=== PATIENT | male | born 1960 | race American Indian/Alaskan Native ===

== ENCOUNTER 2017-07-22 01:54 | Emergency (ER) | payer MEDICARE, OTHER ==
[2017-07-22] MEDS ORDERED: TYLENOL PO STA (02:12)
[2017-07-22] MEDS ORDERED: NACL 0.9% 500 ML 1,000 ML IV ONE (02:12)
[2017-07-22] MEDS ORDERED: NACL 0.9% 1000 ML 1,000 ML IV ONE ×2 (02:29→02:57)
[2017-07-22 02:52] LABS: Hemoglobin 10.9 gm/dl (11.8-15.2); Mean Corpuscular HGB Conc 34 % (32-34); Mean Corpuscular Hemoglobin 31 pg (28-32); Mean Corpuscular Volume 91 fl (84-94); Platelet Count 161 K/mm3 (140-440); Red Blood Count 3.53 M/mm3 (3.65-5.03); Red Cell Distribution Width 14.3 % (13.2-15.2)
[2017-07-22] MEDS ORDERED: VANCOMYCIN/NS 1 GM/250 ML 1 GM/250 ML BAG IV ONE (02:59)
[2017-07-22 03:01] LABS: INR 1.12 (0.87-1.13)
[2017-07-22 03:03] LABS: Albumin 3.3 g/dL (3.9-5); Calcium 8.3 mg/dL (8.4-10.2); Magnesium 1.5 mg/dL (1.7-2.3)
[2017-07-22 03:05] LABS: Amphetamine Screen,Urine PRESUMPTIVE NEGATIVE; Benzodiazepines Screen,Urine PRESUMPTIVE NEGATIVE; Cannabinoid Screen,Urine PRESUMPTIVE NEGATIVE; Cocaine Screen,Urine PRESUMPTIVE NEGATIVE; Methadone Screen,Urine PRESUMPTIVE NEGATIVE; Opiate Screen,Urine PRESUMPTIVE NEGATIVE
[2017-07-22 03:13] LABS: Bacteria,Urine 1+ /HPF (Negative); Bilirubin,Urine NEG (Negative); Blood,Urine LG (Negative); Color,Urine Yellow (Yellow); Mucus,Urine FEW /HPF; Nitrite,Urine NEG (Negative); Urobilinogen,Urine < 2.0 mg/dL (<2.0)
[2017-07-22 03:15] LABS: RBC,Urine > 182.0 /HPF (0.0-6.0); WBC,Urine > 182.0 /HPF (0.0-6.0)
--- NOTE | 2017-07-22 03:22 | XRay Report ---
FINAL REPORT PROCEDURE: XR CHEST 1V AP TECHNIQUE: Chest radiograph anteroposterior view. CPT 05517 HISTORY: CXR/possible Sepsis COMPARISON: No prior studies are available for comparison. FINDINGS: Heart: Normal. Mediastinum/Vessels: There is mild pulmonary vascular congestion.. Lungs/Pleural space: Lungs are clear. There are no infiltrates, effusions or pneumothoraces.. Bony thorax: No acute osseous abnormality. Life support devices: None. IMPRESSION: No acute cardiopulmonary abnormality.
[2017-07-22 03:25] LABS: Band Neutrophils # (Manual) 0.6 K/mm3; Basophils % (Manual) 0 % (0.0-1.8); Eosinophils % (Manual) 0 % (0.0-4.3); Monocytes % (Manual) 0 % (0.0-7.3); Myelocytes # (Manual) 0.1 K/mm3; Total Cells Counted 100
[2017-07-22 03:26] LABS: Platelet Estimate Consistent w Auto
[2017-07-22] MEDS ORDERED: VANCOMYCIN 2,000 MG in NACL 0.9% 500 ML 500 ML IV ONE (03:30)
[2017-07-22 03:43] LABS: Creatine Kinase MB < 1.0 ng/mL (0.0-4.0)
--- NOTE | 2017-07-22 03:52 | XRay Report ---
FINAL REPORT PROCEDURE: XR KNEE 1-2V LT TECHNIQUE: LEFT knee radiographs, AP, lateral and sunrise views. CPT 85340 HISTORY: septic joint LEFT KNEE POST OP 2 DAYS COMPARISON: No prior studies are available for comparison. FINDINGS: The knee replacement hardware is intact. There is no acute bony abnormality. There is generalized soft tissue swelling with numerous pockets of subcutaneous air which could be due to recent surgery although infection is not excluded. There is no discrete mass. There is no joint effusion.. IMPRESSION: The knee replacement hardware is intact. There is no acute bony abnormality. There is generalized soft tissue swelling with numerous pockets of subcutaneous air which could be due to recent surgery although infection is not excluded.
--- NOTE | 2017-07-22 04:28 | Emergency Department Report ---
<SINAI PARSONS T - Last Filed: 07/22/17 06:41> ED Altered Mental Status HPI - General Chief Complaint: Altered Mental Status Stated Complaint: UNSTABLE Time Seen by Provider: 07/22/17 02:56 Source: patient, EMS Mode of arrival: Stretcher Limitations: No Limitations - History of Present Illness Initial Comments: 57 yo male who comes in today due to altered mental status. He had a left total knee joint replacement on 07/19/17. states that the patient wanted to turn up the heat in the house as he felt chills. She also stated that he was saying things that didn't make any sense. Patient temperature of 103.2 in the ED. Mental status baseline. On exam, the patient's left knee is warm and tender to touch. MD Complaint: altered mental status -: This evening Severity: mild Consistency of Symptoms: unknown (resolved currently ) Context: other (left total knee replacement ) Associated Symptoms: fever/chills, foul smelling urine - Related Data Home Medications Medication Instructions Recorded Confirmed Last Taken Albiglutide [Tanzeum] 50 mg SQ QWEEK 07/22/17 07/22/17 07/16/17 metFORMIN [Glucophage] 500 mg PO QDAY 07/22/17 07/22/17 07/20/17 Allergies Allergy/AdvReac Type Severity Reaction Status Date / Time No Known Allergies Allergy Unverified 07/22/17 02:02 ED Review of Systems ROS: Stated complaint: UNSTABLE Other details as noted in HPI Constitutional: chills, fever, malaise, weakness Eyes: denies: eye pain, eye discharge, vision change ENT: denies: ear pain, throat pain Respiratory: denies: cough, shortness of breath, wheezing Cardiovascular: denies: chest pain, palpitations Endocrine: no symptoms reported Gastrointestinal: denies: abdominal pain, nausea, diarrhea Genitourinary: denies: urgency, dysuria Musculoskeletal: arthralgia, myalgia Skin: other (warmth/erythema ) Neurological: denies: headache, weakness, paresthesias Psychiatric: denies: anxiety, depression Hematological/Lymphatic: denies: easy bleeding, easy bruising ED Past Medical Hx - Past Medical History Previous Medical History?: Yes Hx Diabetes: Yes Additional medical history: high cholesterol - Surgical History Past Surgical History?: Yes Additional Surgical History: total knee replacement - Social History Smoking Status: Never Smoker Substance Use Type: Prescribed - Medications Home Medications: Home Medications Medication Instructions Recorded Confirmed Last Taken Type Albiglutide [Tanzeum] 50 mg SQ QWEEK 07/22/17 07/22/17 07/16/17 History metFORMIN [Glucophage] 500 mg PO QDAY 07/22/17 07/22/17 07/20/17 History ED Physical Exam - General Limitations: No Limitations General appearance: alert, in no apparent distress - Head Head exam: Present: atraumatic, normocephalic - Eye Eye exam: Present: normal appearance - ENT ENT exam: Present: mucous membranes moist - Neck Neck exam: Present: normal inspection - Respiratory Respiratory exam: Present: normal lung sounds bilaterally. Absent: respiratory distress - Cardiovascular Cardiovascular Exam: Present: tachycardia - GI/Abdominal GI/Abdominal exam: Present: soft, normal bowel sounds - Extremities Exam Extremities exam: Present: tenderness (left total knee replacement with warmth/ erythema) - Back Exam Back exam: Present: normal inspection - Neurological Exam Neurological exam: Present: alert, oriented X3 - Psychiatric Psychiatric exam: Present: normal affect, normal mood - Skin Skin exam: Present: other (warmth/erythema-left knee ) - Level of Consciousness 1a. Level of Consciousness: alert - LOC Questions 1b. LOC Questions: answers correctly ED Course Vital Signs 07/22/17 07/22/17 07/22/17 01:54 02:00 02:02 Temperature 103.2 F H Pulse Rate 118 H 115 H 112 H Respiratory 33 H 37 H 22 Rate Blood Pressure 102/45 111/48 Blood Pressure [Left] O2 Sat by Pulse 100 100 Oximetry 07/22/17 07/22/17 07/22/17 02:11 02:16 02:17 Temperature 103.2 F H Pulse Rate 115 H Respiratory 43 H 24 Rate Blood Pressure 100/40 Blood Pressure [Left] O2 Sat by Pulse 100 100 Oximetry 07/22/17 07/22/17 07/22/17 02:21 02:30 02:46 Temperature Pulse Rate 112 H 108 H 119 H Respiratory 44 H 50 H Rate Blood Pressure 100/54 108/44 Blood Pressure [Left] O2 Sat by Pulse 100 99 Oximetry 07/22/17 07/22/17 07/22/17 03:00 03:16 03:30 Temperature Pulse Rate 110 H 117 H 110 H Respiratory 51 H 46 H 48 H Rate Blood Pressure 102/46 107/52 110/54 Blood Pressure [Left] O2 Sat by Pulse 100 100 100 Oximetry 07/22/17 07/22/17 07/22/17 03:46 04:00 04:11 Temperature 100.3 F H Pulse Rate 114 H 113 H Respiratory 46 H 38 H Rate Blood Pressure 104/51 98/51 Blood Pressure [Left] O2 Sat by Pulse 100 100 Oximetry 07/22/17 07/22/17 07/22/17 04:16 04:30 04:46 Temperature Pulse Rate 114 H 113 H 112 H Respiratory 49 H 50 H 50 H Rate Blood Pressure 93/49 94/47 95/49 Blood Pressure [Left] O2 Sat by Pulse 99 95 94 Oximetry 07/22/17 07/22/17 07/22/17 05:00 05:15 05:20 Temperature Pulse Rate 110 H 113 H Respiratory 55 H 56 H 24 Rate Blood Pressure 98/47 93/45 Blood Pressure 106/58 [Left] O2 Sat by Pulse 98 97 98 Oximetry 07/22/17 07/22/17 07/22/17 05:31 05:45 06:33 Temperature Pulse Rate 115 H 116 H Respiratory 57 H 48 H Rate Blood Pressure 108/54 114/60 93/39 Blood Pressure [Left] O2 Sat by Pulse 99 97 98 Oximetry 07/22/17 07/22/17 07/22/17 06:45 06:46 07:01 Temperature 103.2 F H Pulse Rate 111 H 117 H Respiratory 58 H 29 H Rate Blood Pressure 93/39 97/47 Blood Pressure [Left] O2 Sat by Pulse 98 96 Oximetry 07/22/17 07/22/17 07/22/17 07:15 07:31 07:45 Temperature Pulse Rate 112 H 111 H 106 H Respiratory 34 H 52 H 23 Rate Blood Pressure 111/54 82/29 82/29 Blood Pressure [Left] O2 Sat by Pulse 97 94 96 Oximetry 07/22/17 07/22/17 07/22/17 08:00 08:05 08:11 Temperature Pulse Rate 110 H 110 H 109 H Respiratory 55 H 45 H 22 Rate Blood Pressure 69/25 69/25 69/25 Blood Pressure [Left] O2 Sat by Pulse 97 98 97 Oximetry 07/22/17 07/22/17 07/22/17 08:15 08:25 08:26 Temperature 98.7 F Pulse Rate 108 H 106 H 104 H Respiratory 13 41 H 42 H Rate Blood Pressure 69/25 72/43 Blood Pressure 69/49 [Left] O2 Sat by Pulse 95 96 97 Oximetry 07/22/17 07/22/17 07/22/17 08:31 08:35 08:40 Temperature Pulse Rate 107 H 106 H 102 H Respiratory 44 H 52 H 38 H Rate Blood Pressure 78/38 86/51 86/53 Blood Pressure [Left] O2 Sat by Pulse 96 96 96 Oximetry 07/22/17 07/22/17 07/22/17 08:45 08:50 08:55 Temperature Pulse Rate 105 H 103 H 105 H Respiratory 15 15 34 H Rate Blood Pressure 86/46 87/50 90/51 Blood Pressure [Left] O2 Sat by Pulse 96 98 Oximetry 07/22/17 07/22/17 07/22/17 09:00 09:05 09:11 Temperature Pulse Rate 105 H 103 H 105 H Respiratory 48 H 41 H 38 H Rate Blood Pressure 93/54 93/54 93/54 Blood Pressure [Left] O2 Sat by Pulse 99 98 98 Oximetry 07/22/17 09:15 Temperature Pulse Rate 104 H Respiratory 21 Rate Blood Pressure 84/38 Blood Pressure [Left] O2 Sat by Pulse 96 Oximetry - Reevaluation(s) Reevaluation #1: 07/22/17 04:33 I reached out to [facility] care of Dr. Cornell (orthopedist-[facility]). Reevaluation #2: 07/22/17 05:39 Blood pressure improving with ivf's and antibiotics. Reevaluation #3: 07/22/17 06:[address] Gage-orthopedics and waiting on a bed for placement. Care transferred to Dr. Millard. - Lab Data Result diagrams: 07/22/17 02:12 07/22/17 02:12 Lab Results 07/22/17 07/22/17 07/22/17 Range/Units 02:12 02:12 02:12 WBC 5.4 (4.5-11.0) K/mm3 RBC 3.53 L (3.65-5.03) M/mm3 Hgb 10.9 L (11.8-15.2) gm/dl Hct 32.0 L (35.5-45.6) % MCV 91 (84-94) fl MCH 31 (28-32) pg MCHC 34 (32-34) % RDW 14.3 (13.2-15.2) % Plt Count 161 (140-440) K/mm3 Add Manual Diff Complete Total Counted 100 Seg Neutrophils % Hedis Abstractor Seg Neuts % (Manual) 79.0 H (40.0-70.0) % Band Neutrophils % 11.0 % Lymphocytes % (Manual) 7.0 L (13.4-35.0) % Reactive Lymphs % (Man) 0 % Monocytes % (Manual) 0 (0.0-7.3) % Eosinophils % (Manual) 0 (0.0-4.3) % Basophils % (Manual) 0 (0.0-1.8) % Metamyelocytes % 1.0 % Myelocytes % 2.0 % Promyelocytes % 0 % Blast Cells % 0 % Nucleated RBC % 1.0 H (0.0-0.9) % Seg Neutrophils # Man 4.3 (1.8-7.7) K/mm3 Band Neutrophils # 0.6 K/mm3 Lymphocytes # (Manual) 0.4 L (1.2-5.4) K/mm3 Abs React Lymphs (Man) 0.0 K/mm3 Monocytes # (Manual) 0.0 (0.0-0.8) K/mm3 Eosinophils # (Manual) 0.0 (0.0-0.4) K/mm3 Basophils # (Manual) 0.0 (0.0-0.1) K/mm3 Metamyelocytes # 0.1 K/mm3 Myelocytes # 0.1 K/mm3 Promyelocytes # 0.0 K/mm3 Blast Cells # 0.0 K/mm3 WBC Morphology Not Reportable Hypersegmented Neuts Not Reportable Hyposegmented Neuts Not Reportable Hypogranular Neuts Not Reportable Smudge Cells Not Reportable Toxic Granulation Not Reportable Toxic Vacuolation Not Reportable Dohle Bodies Not Reportable Pelger-Huet Anomaly Not Reportable Dorita Rods Not Reportable Platelet Estimate Consistent w auto Clumped Platelets Not Reportable Plt Clumps, EDTA Not Reportable Large Platelets Not Reportable Giant Platelets Not Reportable Platelet Satelliting Not Reportable Plt Morphology Comment Not Reportable RBC Morphology Not Reportable Dimorphic RBCs Not Reportable Polychromasia Not Reportable Hypochromasia Not Reportable Poikilocytosis Not Reportable Anisocytosis Not Reportable Microcytosis Not Reportable Macrocytosis Not Reportable Spherocytes Not Reportable Pappenheimer Bodies Not Reportable Sickle Cells Not Reportable Target Cells Not Reportable Tear Drop Cells Not Reportable Ovalocytes Not Reportable Helmet Cells Not Reportable [place] Bodies Not Reportable [place]ill[place] Rings Not Reportable Ning Cells Not Reportable Bite Cells Not Reportable Crenated Cell Not Reportable Elliptocytes Not Reportable Acanthocytes (Spur) Not Reportable Rouleaux Not Reportable Hemoglobin C Crystals Not Reportable Schistocytes Not Reportable Malaria parasites Not Reportable ESR (0-20) mm/Hr Gordon Bodies Not Reportable Hem Pathologist Commnt No PT 15.0 H (12.2-14.9) Sec. INR 1.12 (0.87-1.13) D-Dimer 5337.91 H (0-234) ng/mlDDU VBG pH (7.320-7.420) Sodium (137-145) mmol/L Potassium (3.6-5.0) mmol/L Chloride (98-107) mmol/L Carbon Dioxide (22-30) mmol/L Anion Gap mmol/L BUN (9-20) mg/dL Creatinine (0.8-1.5) mg/dL Estimated GFR ml/min BUN/Creatinine Ratio % Glucose (75-100) mg/dL Lactic Acid (0.7-2.0) mmol/L Calcium (8.4-10.2) mg/dL Magnesium (1.7-2.3) mg/dL Total Bilirubin (0.1-1.2) mg/dL AST (5-40) units/L ALT (7-56) units/L Alkaline Phosphatase (35-129) units/L Total Creatine Kinase (55-170) units/L CK-MB (CK-2) (0.0-4.0) ng/mL CK-MB (CK-2) Rel Index (0-4) Troponin T (0.00-0.029) ng/mL C-Reactive Protein (0.00-1.30) mg/dL Total Protein (6.3-8.2) g/dL Albumin (3.9-5) g/dL Albumin/Globulin Ratio % TSH (0.270-4.200) mlU/mL Urine Color (Yellow) Urine Turbidity (Clear) Urine pH (5.0-7.0) Ur Specific [place] (1.003-1.030) Urine Protein (Negative) mg/dL Urine Glucose (UA) (Negative) mg/dL Urine Ketones (Negative) mg/dL Urine Blood (Negative) Urine Nitrite (Negative) Urine Bilirubin (Negative) Urine Urobilinogen (<2.0) mg/dL Ur Leukocyte Esterase (Negative) Urine WBC (Auto) (0.0-6.0) /HPF Urine RBC (Auto) (0.0-6.0) /HPF Urine Bacteria (Auto) (Negative) /HPF Urine Mucus /HPF Salicylates (2.8-20.0) mg/dL Urine Opiates Screen Presumptive negative Urine Methadone Screen Presumptive negative Acetaminophen (10.0-30.0) ug/mL Ur Barbiturates Screen Presumptive negative Ur Phencyclidine Scrn Presumptive negative Ur Amphetamines Screen Presumptive negative U Benzodiazepines Scrn Presumptive negative Urine Cocaine Screen Presumptive negative U Marijuana (THC) Screen Presumptive negative Drugs of Abuse Note Disclamer Plasma/Serum Alcohol (0-0.07) gm% 07/22/17 07/22/17 07/22/17 Range/Units 02:12 02:12 02:12 WBC (4.5-11.0) K/mm3 RBC (3.65-5.03) M/mm3 Hgb (11.8-15.2) gm/dl Hct (35.5-45.6) % MCV (84-94) fl MCH (28-32) pg MCHC (32-34) % RDW (13.2-15.2) % Plt Count (140-440) K/mm3 Add Manual Diff Total Counted Seg Neutrophils % Seg Neuts % (Manual) (40.0-70.0) % Band Neutrophils % % Lymphocytes % (Manual) (13.4-35.0) % Reactive Lymphs % (Man) % Monocytes % (Manual) (0.0-7.3) % Eosinophils % (Manual) (0.0-4.3) % Basophils % (Manual) (0.0-1.8) % Metamyelocytes % % Myelocytes % % Promyelocytes % % Blast Cells % % Nucleated RBC % (0.0-0.9) % Seg Neutrophils # Man (1.8-7.7) K/mm3 Band Neutrophils # K/mm3 Lymphocytes # (Manual) (1.2-5.4) K/mm3 Abs React Lymphs (Man) K/mm3 Monocytes # (Manual) (0.0-0.8) K/mm3 Eosinophils # (Manual) (0.0-0.4) K/mm3 Basophils # (Manual) (0.0-0.1) K/mm3 Metamyelocytes # K/mm3 Myelocytes # K/mm3 Promyelocytes # K/mm3 Blast Cells # K/mm3 WBC Morphology Hypersegmented Neuts Hyposegmented Neuts Hypogranular Neuts Smudge Cells Toxic Granulation Toxic Vacuolation Dohle Bodies Pelger-Huet Anomaly Dorita Rods Platelet Estimate Clumped Platelets Plt Clumps, EDTA Large Platelets Giant Platelets Platelet Satelliting Plt Morphology Comment RBC Morphology Dimorphic RBCs Polychromasia Hypochromasia Poikilocytosis Anisocytosis Microcytosis Macrocytosis Spherocytes Pappenheimer Bodies Sickle Cells Target Cells Tear Drop Cells Ovalocytes Helmet Cells [place] Bodies [place] Rings Ning Cells Bite Cells Crenated Cell Elliptocytes Acanthocytes (Spur) Rouleaux Hemoglobin C Crystals Schistocytes Malaria parasites ESR (0-20) mm/Hr Gordon Bodies Hem Pathologist Commnt PT (12.2-14.9) Sec. INR (0.87-1.13) D-Dimer (0-234) ng/mlDDU VBG pH (7.320-7.420) Sodium 139 (137-145) mmol/L Potassium 4.2 (3.6-5.0) mmol/L Chloride 103.1 (98-107) mmol/L Carbon Dioxide 23 (22-30) mmol/L Anion Gap 17 mmol/L BUN 16 (9-20) mg/dL Creatinine 1.6 H (0.8-1.5) mg/dL Estimated GFR 54 ml/min BUN/Creatinine Ratio 10 % Glucose 108 H (75-100) mg/dL Lactic Acid 2.40 H* (0.7-2.0) mmol/L Calcium 8.3 L (8.4-10.2) mg/dL Magnesium 1.50 L (1.7-2.3) mg/dL Total Bilirubin 0.90 (0.1-1.2) mg/dL AST 30 (5-40) units/L ALT 9 (7-56) units/L Alkaline Phosphatase 109 (35-129) units/L Total Creatine Kinase (55-170) units/L CK-MB (CK-2) (0.0-4.0) ng/mL CK-MB (CK-2) Rel Index (0-4) Troponin T (0.00-0.029) ng/mL C-Reactive Protein (0.00-1.30) mg/dL Total Protein 6.6 (6.3-8.2) g/dL Albumin 3.3 L (3.9-5) g/dL Albumin/Globulin Ratio 1.0 % TSH 1.360 (0.270-4.200) mlU/mL Urine Color (Yellow) Urine Turbidity (Clear) Urine pH (5.0-7.0) Ur Specific [place] (1.003-1.030) Urine Protein (Negative) mg/dL Urine Glucose (UA) (Negative) mg/dL Urine Ketones (Negative) mg/dL Urine Blood (Negative) Urine Nitrite (Negative) Urine Bilirubin (Negative) Urine Urobilinogen (<2.0) mg/dL Ur Leukocyte Esterase (Negative) Urine WBC (Auto) (0.0-6.0) /HPF Urine RBC (Auto) (0.0-6.0) /HPF Urine Bacteria (Auto) (Negative) /HPF Urine Mucus /HPF Salicylates (2.8-20.0) mg/dL Urine Opiates Screen Urine Methadone Screen Acetaminophen (10.0-30.0) ug/mL Ur Barbiturates Screen Ur Phencyclidine Scrn Ur Amphetamines Screen U Benzodiazepines Scrn Urine Cocaine Screen U Marijuana (THC) Screen Drugs of Abuse Note Plasma/Serum Alcohol (0-0.07) gm% 07/22/17 07/22/17 07/22/17 Range/Units 02:12 02:12 02:12 WBC (4.5-11.0) K/mm3 RBC (3.65-5.03) M/mm3 Hgb (11.8-15.2) gm/dl Hct (35.5-45.6) % MCV (84-94) fl MCH (28-32) pg MCHC (32-34) % RDW (13.2-15.2) % Plt Count (140-440) K/mm3 Add Manual Diff Total Counted Seg Neutrophils % Seg Neuts % (Manual) (40.0-70.0) % Band Neutrophils % % Lymphocytes % (Manual) (13.4-35.0) % Reactive Lymphs % (Man) % Monocytes % (Manual) (0.0-7.3) % Eosinophils % (Manual) (0.0-4.3) % Basophils % (Manual) (0.0-1.8) % Metamyelocytes % % Myelocytes % % Promyelocytes % % Blast Cells % % Nucleated RBC % (0.0-0.9) % Seg Neutrophils # Man (1.8-7.7) K/mm3 Band Neutrophils # K/mm3 Lymphocytes # (Manual) (1.2-5.4) K/mm3 Abs React Lymphs (Man) K/mm3 Monocytes # (Manual) (0.0-0.8) K/mm3 Eosinophils # (Manual) (0.0-0.4) K/mm3 Basophils # (Manual) (0.0-0.1) K/mm3 Metamyelocytes # K/mm3 Myelocytes # K/mm3 Promyelocytes # K/mm3 Blast Cells # K/mm3 WBC Morphology Hypersegmented Neuts Hyposegmented Neuts Hypogranular Neuts Smudge Cells Toxic Granulation Toxic Vacuolation Dohle Bodies Pelger-Huet Anomaly Dorita Rods Platelet Estimate Clumped Platelets Plt Clumps, EDTA Large Platelets Giant Platelets Platelet Satelliting Plt Morphology Comment RBC Morphology Dimorphic RBCs Polychromasia Hypochromasia Poikilocytosis Anisocytosis Microcytosis Macrocytosis Spherocytes Pappenheimer Bodies Sickle Cells Target Cells Tear Drop Cells Ovalocytes Helmet Cells [place] Bodies C[place]illos Rings [place] Cells Bite Cells Crenated Cell Elliptocytes Acanthocytes (Spur) Rouleaux Hemoglobin C Crystals Schistocytes Malaria parasites ESR (0-20) mm/Hr Gordon Bodies Hem Pathologist Commnt PT (12.2-14.9) Sec. INR (0.87-1.13) D-Dimer (0-234) ng/mlDDU VBG pH (7.320-7.420) Sodium (137-145) mmol/L Potassium (3.6-5.0) mmol/L Chloride (98-107) mmol/L Carbon Dioxide (22-30) mmol/L Anion Gap mmol/L BUN (9-20) mg/dL Creatinine (0.8-1.5) mg/dL Estimated GFR ml/min BUN/Creatinine Ratio % Glucose (75-100) mg/dL Lactic Acid (0.7-2.0) mmol/L Calcium (8.4-10.2) mg/dL Magnesium (1.7-2.3) mg/dL Total Bilirubin (0.1-1.2) mg/dL AST (5-40) units/L ALT (7-56) units/L Alkaline Phosphatase (35-129) units/L Total Creatine Kinase (55-170) units/L CK-MB (CK-2) (0.0-4.0) ng/mL CK-MB (CK-2) Rel Index (0-4) Troponin T (0.00-0.029) ng/mL C-Reactive Protein (0.00-1.30) mg/dL Total Protein (6.3-8.2) g/dL Albumin (3.9-5) g/dL Albumin/Globulin Ratio % TSH (0.270-4.200) mlU/mL Urine Color (Yellow) Urine Turbidity (Clear) Urine pH (5.0-7.0) Ur Specific [place] (1.003-1.030) Urine Protein (Negative) mg/dL Urine Glucose (UA) (Negative) mg/dL Urine Ketones (Negative) mg/dL Urine Blood (Negative) Urine Nitrite (Negative) Urine Bilirubin (Negative) Urine Urobilinogen (<2.0) mg/dL Ur Leukocyte Esterase (Negative) Urine WBC (Auto) (0.0-6.0) /HPF Urine RBC (Auto) (0.0-6.0) /HPF Urine Bacteria (Auto) (Negative) /HPF Urine Mucus /HPF Salicylates < 0.3 L (2.8-20.0) mg/dL Urine Opiates Screen Urine Methadone Screen Acetaminophen < 15.0 (10.0-30.0) ug/mL Ur Barbiturates Screen Ur Phencyclidine Scrn Ur Amphetamines Screen U Benzodiazepines Scrn Urine Cocaine Screen U Marijuana (THC) Screen Drugs of Abuse Note Plasma/Serum Alcohol < 0.01 (0-0.07) gm% 07/22/17 07/22/17 07/22/17 Range/Units 02:12 03:02 03:03 WBC (4.5-11.0) K/mm3 RBC (3.65-5.03) M/mm3 Hgb (11.8-15.2) gm/dl Hct (35.5-45.6) % MCV (84-94) fl MCH (28-32) pg MCHC (32-34) % RDW (13.2-15.2) % Plt Count (140-440) K/mm3 Add Manual Diff Total Counted Seg Neutrophils % Seg Neuts % (Manual) (40.0-70.0) % Band Neutrophils % % Lymphocytes % (Manual) (13.4-35.0) % Reactive Lymphs % (Man) % Monocytes % (Manual) (0.0-7.3) % Eosinophils % (Manual) (0.0-4.3) % Basophils % (Manual) (0.0-1.8) % Metamyelocytes % % Myelocytes % % Promyelocytes % % Blast Cells % % Nucleated RBC % (0.0-0.9) % Seg Neutrophils # Man (1.8-7.7) K/mm3 Band Neutrophils # K/mm3 Lymphocytes # (Manual) (1.2-5.4) K/mm3 Abs React Lymphs (Man) K/mm3 Monocytes # (Manual) (0.0-0.8) K/mm3 Eosinophils # (Manual) (0.0-0.4) K/mm3 Basophils # (Manual) (0.0-0.1) K/mm3 Metamyelocytes # K/mm3 Myelocytes # K/mm3 Promyelocytes # K/mm3 Blast Cells # K/mm3 WBC Morphology Hypersegmented Neuts Hyposegmented Neuts Hypogranular Neuts Smudge Cells Toxic Granulation Toxic Vacuolation Dohle Bodies Pelger-Huet Anomaly Dorita Rods Platelet Estimate Clumped Platelets Plt Clumps, EDTA Large Platelets Giant Platelets Platelet Satelliting Plt Morphology Comment RBC Morphology Dimorphic RBCs Polychromasia Hypochromasia Poikilocytosis Anisocytosis Microcytosis Macrocytosis Spherocytes Pappenheimer Bodies Sickle Cells Target Cells Tear Drop Cells Ovalocytes Helmet Cells [place] Bodies Cerrillos Rings [place] Cells Bite Cells Crenated Cell Elliptocytes Acanthocytes (Spur) Rouleaux Hemoglobin C Crystals Schistocytes Malaria parasites ESR (0-20) mm/Hr Gordon Bodies Hem Pathologist Commnt PT (12.2-14.9) Sec. INR (0.87-1.13) D-Dimer (0-234) ng/mlDDU VBG pH 7.308 L (7.320-7.420) Sodium (137-145) mmol/L Potassium (3.6-5.0) mmol/L Chloride (98-107) mmol/L Carbon Dioxide (22-30) mmol/L Anion Gap mmol/L BUN (9-20) mg/dL Creatinine (0.8-1.5) mg/dL Estimated GFR ml/min BUN/Creatinine Ratio % Glucose (75-100) mg/dL Lactic Acid (0.7-2.0) mmol/L Calcium (8.4-10.2) mg/dL Magnesium (1.7-2.3) mg/dL Total Bilirubin (0.1-1.2) mg/dL AST (5-40) units/L ALT (7-56) units/L Alkaline Phosphatase (35-129) units/L Total Creatine Kinase 677 H (55-170) units/L CK-MB (CK-2) < 1.0 (0.0-4.0) ng/mL CK-MB (CK-2) Rel Index 0.1 (0-4) Troponin T < 0.010 (0.00-0.029) ng/mL C-Reactive Protein (0.00-1.30) mg/dL Total Protein (6.3-8.2) g/dL Albumin (3.9-5) g/dL Albumin/Globulin Ratio % TSH (0.270-4.200) mlU/mL Urine Color Yellow (Yellow) Urine Turbidity Clear (Clear) Urine pH 6.0 (5.0-7.0) Ur Specific [place] 1.010 (1.003-1.030) Urine Protein 30 mg/dl (Negative) mg/dL Urine Glucose (UA) Neg (Negative) mg/dL Urine Ketones Neg (Negative) mg/dL Urine Blood Lg (Negative) Urine Nitrite Neg (Negative) Urine Bilirubin Neg (Negative) Urine Urobilinogen < 2.0 (<2.0) mg/dL Ur Leukocyte Esterase Lg (Negative) Urine WBC (Auto) > 182.0 H (0.0-6.0) /HPF Urine RBC (Auto) > 182.0 (0.0-6.0) /HPF Urine Bacteria (Auto) 1+ (Negative) /HPF Urine Mucus Few /HPF Salicylates (2.8-20.0) mg/dL Urine Opiates Screen Urine Methadone Screen Acetaminophen (10.0-30.0) ug/mL Ur Barbiturates Screen Ur Phencyclidine Scrn Ur Amphetamines Screen U Benzodiazepines Scrn Urine Cocaine Screen U Marijuana (THC) Screen Drugs of Abuse Note Plasma/Serum Alcohol (0-0.07) gm% 07/22/17 07/22/17 07/22/17 Range/Units 03:08 03:08 05:19 WBC (4.5-11.0) K/mm3 RBC (3.65-5.03) M/mm3 Hgb (11.8-15.2) gm/dl Hct (35.5-45.6) % MCV (84-94) fl MCH (28-32) pg MCHC (32-34) % RDW (13.2-15.2) % Plt Count (140-440) K/mm3 Add Manual Diff Total Counted Seg Neutrophils % Seg Neuts % (Manual) (40.0-70.0) % Band Neutrophils % % Lymphocytes % (Manual) (13.4-35.0) % Reactive Lymphs % (Man) % Monocytes % (Manual) (0.0-7.3) % Eosinophils % (Manual) (0.0-4.3) % Basophils % (Manual) (0.0-1.8) % Metamyelocytes % % Myelocytes % % Promyelocytes % % Blast Cells % % Nucleated RBC % (0.0-0.9) % Seg Neutrophils # Man (1.8-7.7) K/mm3 Band Neutrophils # K/mm3 Lymphocytes # (Manual) (1.2-5.4) K/mm3 Abs React Lymphs (Man) K/mm3 Monocytes # (Manual) (0.0-0.8) K/mm3 Eosinophils # (Manual) (0.0-0.4) K/mm3 Basophils # (Manual) (0.0-0.1) K/mm3 Metamyelocytes # K/mm3 Myelocytes # K/mm3 Promyelocytes # K/mm3 Blast Cells # K/mm3 WBC Morphology Hypersegmented Neuts Hyposegmented Neuts Hypogranular Neuts Smudge Cells Toxic Granulation Toxic Vacuolation Dohle Bodies Pelger-Huet Anomaly Dorita Rods Platelet Estimate Clumped Platelets Plt Clumps, EDTA Large Platelets Giant Platelets Platelet Satelliting Plt Morphology Comment RBC Morphology Dimorphic RBCs Polychromasia Hypochromasia Poikilocytosis Anisocytosis Microcytosis Macrocytosis Spherocytes Pappenheimer Bodies Sickle Cells Target Cells Tear Drop Cells Ovalocytes Helmet Cells [place] Bodies [place] Rings [place] Cells Bite Cells Crenated Cell Elliptocytes Acanthocytes (Spur) Rouleaux Hemoglobin C Crystals Schistocytes Malaria parasites ESR 73 (0-20) mm/Hr Gordon Bodies Hem Pathologist Commnt PT (12.2-14.9) Sec. INR (0.87-1.13) D-Dimer (0-234) ng/mlDDU VBG pH (7.320-7.420) Sodium (137-145) mmol/L Potassium (3.6-5.0) mmol/L Chloride (98-107) mmol/L Carbon Dioxide (22-30) mmol/L Anion Gap mmol/L BUN (9-20) mg/dL Creatinine (0.8-1.5) mg/dL Estimated GFR ml/min BUN/Creatinine Ratio % Glucose (75-100) mg/dL Lactic Acid 3.30 H* (0.7-2.0) mmol/L Calcium (8.4-10.2) mg/dL Magnesium (1.7-2.3) mg/dL Total Bilirubin (0.1-1.2) mg/dL AST (5-40) units/L ALT (7-56) units/L Alkaline Phosphatase (35-129) units/L Total Creatine Kinase (55-170) units/L CK-MB (CK-2) (0.0-4.0) ng/mL CK-MB (CK-2) Rel Index (0-4) Troponin T (0.00-0.029) ng/mL C-Reactive Protein 22.20 H (0.00-1.30) mg/dL Total Protein (6.3-8.2) g/dL Albumin (3.9-5) g/dL Albumin/Globulin Ratio % TSH (0.270-4.200) mlU/mL Urine Color (Yellow) Urine Turbidity (Clear) Urine pH (5.0-7.0) Ur Specific [place] (1.003-1.030) Urine Protein (Negative) mg/dL Urine Glucose (UA) (Negative) mg/dL Urine Ketones (Negative) mg/dL Urine Blood (Negative) Urine Nitrite (Negative) Urine Bilirubin (Negative) Urine Urobilinogen (<2.0) mg/dL Ur Leukocyte Esterase (Negative) Urine WBC (Auto) (0.0-6.0) /HPF Urine RBC (Auto) (0.0-6.0) /HPF Urine Bacteria (Auto) (Negative) /HPF Urine Mucus /HPF Salicylates (2.8-20.0) mg/dL Urine Opiates Screen Urine Methadone Screen Acetaminophen (10.0-30.0) ug/mL Ur Barbiturates Screen Ur Phencyclidine Scrn Ur Amphetamines Screen U Benzodiazepines Scrn Urine Cocaine Screen U Marijuana (THC) Screen Drugs of Abuse Note Plasma/Serum Alcohol (0-0.07) gm% - Medical Decision Making Sepsis Infected left total knee Uti Altered mental status Obstructive sleep apnea Critical care attestation.: If time is entered above; I have spent that time in minutes in the direct care of this critically ill patient, excluding procedure time. ED Disposition Clinical Impression: UTI (urinary tract infection), Post op infection, Status post total knee replacement, left, Septic shock, Renal insufficiency, Hypomagnesemia Disposition: OP ADMIT IP TO THIS HOSP Condition: Stable <MARIE MILLARD - Last Filed: 07/22/17 11:29> - Lab Data Result diagrams: 07/22/17 02:12 07/22/17 02:12 ED Disposition Is pt being admited?: Yes Time of Disposition: 11:29 (Dr Garg/hosp)
[2017-07-22] MEDS: ZOSYN/NS 3.375GM/50ML 3.375 GM/50 ML BAG IV SCH ×3 (05:42→18:37)
--- NOTE | 2017-07-22 06:23 | Cat Scan Report ---
FINAL REPORT PROCEDURE: CT HEAD/BRAIN WO CON TECHNIQUE: Computerized tomography of the head was performed without contrast material. HISTORY: altered mental status COMPARISON: 07/23/2016 FINDINGS: Skull and scalp: Normal. Paranasal sinuses: Normal. Ventricles and subarachnoid spaces: Normal. Cerebrum: No evidence of hemorrhage, acute infarction or mass . Cerebellum and brainstem: No evidence of hemorrhage, acute infarction or mass. Vasculature: Normal. Comments: None. IMPRESSION: Normal Examination
[2017-07-22] MEDS ORDERED: MOTRIN PO ONE ×2 (06:38→06:41)
[2017-07-22] MEDS ORDERED: NACL 0.9% 1000 ML 1,000 ML ONE (07:25)
[2017-07-22] MEDS ORDERED: LEVOPHED DRIP 4 MG/NS 250 ML 4 MG/250 ML BAG IV ONE ×3 (07:53→20:08)
[2017-07-22] MEDS ORDERED: LEVOPHED DRIP 4 MG/NS 250 ML 4 MG/250 ML BAG IV SCH (08:00)
--- NOTE | 2017-07-22 08:35 | XRay Report ---
AP chest x-ray. History: Central line placement. Findings: A right central line terminates in the lower SVC, and there is no evidence of pneumothorax. The heart and lungs reveal no acute or significant findings.
[2017-07-22] MEDS ORDERED: MAGNESIUM SULFATE 40GM/1000ML 40 GM/1,000 ML BAG IV ONE (08:51)
--- NOTE | 2017-07-22 08:57 | Emergency Department Report ---
Blank Doc - Documentation Documentation: I received signout from Dr. Paul overnight the patient was awaiting transport. Once transportation arrived patient blood pressure systolic was in the 80's. Nurse informed me that the patient received 5 L of normal saline and pressure remained in the 80s to 90 despite fluid resuscitation. Patient also with tachypnea With clear sounding breath sounds and tachycardic. Positive findings of sepsis with associated septic shock. Decision made to place central line at that time and transport was turned away because I needed to be discussed case with accepting physician to ensure that patient can be received to an ICU or higher level of care. Labs reviewed. Patient has low magnesium. IV magnesium ordered Patient appears to have postoperative infection to the left knee in addition to UTI. Patient appears to have urosepsis with septic shock. Lactic acid is gradually increasing Pt has mild renal insufficiency (baseline unknown) Procedure note: Central line placement Central line was placed in the ED due to persistent hypotension despite IV fluid bolus. Consent was obtained. Right side of neck prepped and draped in sterile fashion. Ultrasound was used to identify right internal jugular line. 5 mL of lidocaine was injected subcutaneous tissue. 18-gauge needle used to cannulate right IJ using Seldinger technique triple-lumen central line was placed. Possible return from all 3 ports. Secured with tape and Tegaderm. No hematoma at the site. No cough medications. Chest x-ray reveals adequate placement without pneumothorax. Patient tolerated procedure well. ED course including consults: At 8:53am case was discussed with [place] transfer service. Previous accepting physician was Farhat Jones is currently in surgery and therefore a message was left. Transfer service states they will recontact us once he responds and would attempt to find another solution for acceptance. at 9:20am spoke to Dr. Jose Mccullough (ortho MD with [place]) Informed of pt status and need for ICU placement, will determine bed status and appropriate facility for acceptance and call back 9:25 AM spb remains in 80's on 16 kanika of Levaphed, increased to 20 mc 10:52 AM called back to [place] is up-to-date apparently patient is accepted to [facility] however there are no ICU beds available. Plan to call back when a bed is available Dr. Olivier (ED director) spoke to hospitalist director Dr Morton about admitting pt here 11:10 am pt accepted by Dr Garg for admission. Family and pt informed. SBP is over 100 at this time on levophed 25 kanika Critical care time: 65 minutes.
[2017-07-22] MEDS ORDERED: MAGNESIUM SULFATE 2GM/50ML 2 GM/50 ML BAG IV ONE (09:28)
[2017-07-22] MEDS ORDERED: AMBIEN PO PRN (12:54)
[2017-07-22] MEDS ORDERED: TYLENOL PO PRN (12:54)
[2017-07-22] MEDS ORDERED: PROVENTIL IH PRN (12:54)
[2017-07-22] MEDS ORDERED: DULCOLAX PR PRN (12:54)
[2017-07-22] MEDS ORDERED: PERCOCET 5/325 PO PRN (12:54)
[2017-07-22] MEDS ORDERED: ZOFRAN IV PRN (12:54)
--- NOTE | 2017-07-22 13:03 | History and Physical Report ---
History of Present Illness Date of examination: 07/22/17 Date of admission: 07/22/2017 History of present illness: 57 yo male who comes in today due to altered mental status. He had a left total knee joint replacement on 07/19/17. states that the patient wanted to turn up the heat in the house as he felt chills. She also stated that he was saying things that didn't make any sense. Patient temperature of 103.2 in the ED. Mental status baseline. On exam, the patient's left knee is warm and tender to touch. Past History Past Medical History: diabetes, hyperlipidemia Past Surgical History: total knee replacement Social history: , smoking (never) Medications and Allergies Allergies Allergy/AdvReac Type Severity Reaction Status Date / Time No Known Allergies Allergy Unverified 07/22/17 02:02 Home Medications Medication Instructions Recorded Confirmed Last Taken Type Albiglutide [Tanzeum] 50 mg SQ QWEEK 07/22/17 07/22/17 07/16/17 History metFORMIN [Glucophage] 500 mg PO QDAY 07/22/17 07/22/17 07/20/17 History Active Meds: Active Medications Piperacillin Sod/Tazobactam Sod (Zosyn/Ns 3.375gm/50ml) 3.375 gm in 50 mls @ 100 mls/hr IV Q6HR JAZMINE Last Admin: 07/22/17 12:47 Dose: 100 mls/hr Norepinephrine (Levophed Drip 4 Mg/Ns 250 Ml) 4 mg in 250 mls @ 7.5 mls/hr IV TITR JAZMINE; 2 MCG/MIN PRN Reason: Protocol Last Titration: 07/22/17 10:15 Dose: 26 mcg/min, 97.5 mls/hr Review of Systems Constitutional: no weight loss, no chills Ears, nose, mouth and throat: no ear pain, no tinnitis, no nose pain, no nasal congestion Cardiovascular: no chest pain, no palpitations, no rapid/irregular heart beat, no syncope Respiratory: no cough, no cough with sputum, no hemoptysis Gastrointestinal: no nausea, no constipation, no change in bowel habits, no coffee ground emesis Genitourinary Male: no hematuria, no discharge, no incontinence Rectal: no pain, no incontinence, no hemorrhoids Musculoskeletal: other (L knee pain), no neck stiffness, no arm numbness/ tingling, no shooting leg pain Integumentary: no pruritis, no sores, no jaundice Neurological: no transient paralysis, no weakness, no tingling Psychiatric: no anxiety, no sleep disturbances, no change in appetite Endocrine: no cold intolerance, no polyphagia, no polyuria Hematologic/Lymphatic: no easy bruising, no easy bleeding Allergic/Immunologic: no urticaria, no allergic rhinitis Exam - Constitutional Vitals: Temp Pulse Resp BP Pulse Ox 98.7 F 91 H 39 H 103/67 98 07/22/17 08:26 07/22/17 12:21 07/22/17 12:21 07/22/17 12:21 07/22/17 12:21 General appearance: Present: no acute distress, well-nourished - EENT Eyes: Present: PERRL ENT: hearing intact, clear oral mucosa - Neck Neck: Present: supple, normal ROM - Respiratory Respiratory effort: normal Respiratory: bilateral: CTA - Cardiovascular Heart Sounds: Present: S1 & S2. Absent: rub, click - Extremities Extremities: pulses symmetrical Extremity abnormal: edema (R knee erythema and edema, warm to the touch) Peripheral Pulses: within normal limits - Abdominal General gastrointestinal: Present: soft, non-tender, non-distended, normal bowel sounds Male genitourinary: Present: deferred - Rectal Rectal Exam: deferred - Integumentary Integumentary: Present: clear, warm, dry - Musculoskeletal Musculoskeletal: gait normal, strength equal bilaterally - Psychiatric Psychiatric: appropriate mood/affect, intact judgment & insight - Neurologic Neurologic: CNII-XII intact, moves all extremities - Allied Health Allied health notes reviewed: nursing Results - Labs CBC & Chem 7: 07/22/17 02:12 07/22/17 02:12 Labs: Laboratory Last Values WBC 5.4 K/mm3 (4.5-11.0) 07/22/17 02:12 RBC 3.53 M/mm3 (3.65-5.03) L 07/22/17 02:12 Hgb 10.9 gm/dl (11.8-15.2) L 07/22/17 02:12 Hct 32.0 % (35.5-45.6) L 07/22/17 02:12 MCV 91 fl (84-94) 07/22/17 02:12 MCH 31 pg (28-32) 07/22/17 02:12 MCHC 34 % (32-34) 07/22/17 02:12 RDW 14.3 % (13.2-15.2) 07/22/17 02:12 Plt Count 161 K/mm3 (140-440) 07/22/17 02:12 Add Manual Diff Complete 07/22/17 02:12 Total Counted 100 07/22/17 02:12 Seg Neutrophils % Functional Architect 07/22/17 02:12 Seg Neuts % (Manual) 79.0 % (40.0-70.0) H 07/22/17 02:12 Band Neutrophils % 11.0 % 07/22/17 02:12 Lymphocytes % (Manual) 7.0 % (13.4-35.0) L 07/22/17 02:12 Reactive Lymphs % (Man) 0 % 07/22/17 02:12 Monocytes % (Manual) 0 % (0.0-7.3) 07/22/17 02:12 Eosinophils % (Manual) 0 % (0.0-4.3) 07/22/17 02:12 Basophils % (Manual) 0 % (0.0-1.8) 07/22/17 02:12 Metamyelocytes % 1.0 % 07/22/17 02:12 Myelocytes % 2.0 % 07/22/17 02:12 Promyelocytes % 0 % 07/22/17 02:12 Blast Cells % 0 % 07/22/17 02:12 Nucleated RBC % 1.0 % (0.0-0.9) H 07/22/17 02:12 Seg Neutrophils # Man 4.3 K/mm3 (1.8-7.7) 07/22/17 02:12 Band Neutrophils # 0.6 K/mm3 07/22/17 02:12 Lymphocytes # (Manual) 0.4 K/mm3 (1.2-5.4) L 07/22/17 02:12 Abs React Lymphs (Man) 0.0 K/mm3 07/22/17 02:12 Monocytes # (Manual) 0.0 K/mm3 (0.0-0.8) 07/22/17 02:12 Eosinophils # (Manual) 0.0 K/mm3 (0.0-0.4) 07/22/17 02:12 Basophils # (Manual) 0.0 K/mm3 (0.0-0.1) 07/22/17 02:12 Metamyelocytes # 0.1 K/mm3 07/22/17 02:12 Myelocytes # 0.1 K/mm3 07/22/17 02:12 Promyelocytes # 0.0 K/mm3 07/22/17 02:12 Blast Cells # 0.0 K/mm3 07/22/17 02:12 WBC Morphology Not Reportable 07/22/17 02:12 Hypersegmented Neuts Not Reportable 07/22/17 02:12 Hyposegmented Neuts Not Reportable 07/22/17 02:12 Hypogranular Neuts Not Reportable 07/22/17 02:12 Smudge Cells Not Reportable 07/22/17 02:12 Toxic Granulation Not Reportable 07/22/17 02:12 Toxic Vacuolation Not Reportable 07/22/17 02:12 Dohle Bodies Not Reportable 07/22/17 02:12 Pelger-Huet Anomaly Not Reportable 07/22/17 02:12 Dorita Rods Not Reportable 07/22/17 02:12 Platelet Estimate Consistent w auto 07/22/17 02:12 Clumped Platelets Not Reportable 07/22/17 02:12 Plt Clumps, EDTA Not Reportable 07/22/17 02:12 Large Platelets Not Reportable 07/22/17 02:12 Giant Platelets Not Reportable 07/22/17 02:12 Platelet Satelliting Not Reportable 07/22/17 02:12 Plt Morphology Comment Not Reportable 07/22/17 02:12 RBC Morphology Not Reportable 07/22/17 02:12 Dimorphic RBCs Not Reportable 07/22/17 02:12 Polychromasia Not Reportable 07/22/17 02:12 Hypochromasia Not Reportable 07/22/17 02:12 Poikilocytosis Not Reportable 07/22/17 02:12 Anisocytosis Not Reportable 07/22/17 02:12 Microcytosis Not Reportable 07/22/17 02:12 Macrocytosis Not Reportable 07/22/17 02:12 Spherocytes Not Reportable 07/22/17 02:12 Pappenheimer Bodies Not Reportable 07/22/17 02:12 Sickle Cells Not Reportable 07/22/17 02:12 Target Cells Not Reportable 07/22/17 02:12 Tear Drop Cells Not Reportable 07/22/17 02:12 Ovalocytes Not Reportable 07/22/17 02:12 Helmet Cells Not Reportable 07/22/17 02:12 [place] Bodies Not Reportable 07/22/17 02:12 [place] Rings Not Reportable 07/22/17 02:12 Ning Cells Not Reportable 07/22/17 02:12 Bite Cells Not Reportable 07/22/17 02:12 Crenated Cell Not Reportable 07/22/17 02:12 Elliptocytes Not Reportable 07/22/17 02:12 Acanthocytes (Spur) Not Reportable 07/22/17 02:12 Rouleaux Not Reportable 07/22/17 02:12 Hemoglobin C Crystals Not Reportable 07/22/17 02:12 Schistocytes Not Reportable 07/22/17 02:12 Malaria parasites Not Reportable 07/22/17 02:12 ESR 73 mm/Hr (0-20) 07/22/17 03:08 Gordon Bodies Not Reportable 07/22/17 02:12 Hem Pathologist Commnt No 07/22/17 02:12 PT 15.0 Sec. (12.2-14.9) H 07/22/17 02:12 INR 1.12 (0.87-1.13) 07/22/17 02:12 D-Dimer 5337.91 ng/mlDDU (0-234) H 07/22/17 02:12 VBG pH 7.308 (7.320-7.420) L 07/22/17 02:12 Sodium 139 mmol/L (137-145) 07/22/17 02:12 Potassium 4.2 mmol/L (3.6-5.0) 07/22/17 02:12 Chloride 103.1 mmol/L (98-107) 07/22/17 02:12 Carbon Dioxide 23 mmol/L (22-30) 07/22/17 02:12 Anion Gap 17 mmol/L 07/22/17 02:12 BUN 16 mg/dL (9-20) 07/22/17 02:12 Creatinine 1.6 mg/dL (0.8-1.5) H 07/22/17 02:12 Estimated GFR 54 ml/min 07/22/17 02:12 BUN/Creatinine Ratio 10 % 07/22/17 02:12 Glucose 108 mg/dL (75-100) H 07/22/17 02:12 Lactic Acid 3.30 mmol/L (0.7-2.0) H* 07/22/17 05:19 Calcium 8.3 mg/dL (8.4-10.2) L 07/22/17 02:12 Magnesium 1.50 mg/dL (1.7-2.3) L 07/22/17 02:12 Total Bilirubin 0.90 mg/dL (0.1-1.2) 07/22/17 02:12 AST 30 units/L (5-40) 07/22/17 02:12 ALT 9 units/L (7-56) 07/22/17 02:12 Alkaline Phosphatase 109 units/L (35-129) 07/22/17 02:12 Total Creatine Kinase 677 units/L (55-170) H 07/22/17 03:02 CK-MB (CK-2) < 1.0 ng/mL (0.0-4.0) 07/22/17 03:02 CK-MB (CK-2) Rel Index 0.1 (0-4) 07/22/17 03:02 Troponin T < 0.010 ng/mL (0.00-0.029) 07/22/17 03:02 C-Reactive Protein 22.20 mg/dL (0.00-1.30) H 07/22/17 03:08 Total Protein 6.6 g/dL (6.3-8.2) 07/22/17 02:12 Albumin 3.3 g/dL (3.9-5) L 07/22/17 02:12 Albumin/Globulin Ratio 1.0 % 07/22/17 02:12 TSH 1.360 mlU/mL (0.270-4.200) 07/22/17 02:12 Urine Color Yellow (Yellow) 07/22/17 03:03 Urine Turbidity Clear (Clear) 07/22/17 03:03 Urine pH 6.0 (5.0-7.0) 07/22/17 03:03 Ur Specific [place] 1.010 (1.003-1.030) 07/22/17 03:03 Urine Protein 30 mg/dl mg/dL (Negative) 07/22/17 03:03 Urine Glucose (UA) Neg mg/dL (Negative) 07/22/17 03:03 Urine Ketones Neg mg/dL (Negative) 07/22/17 03:03 Urine Blood Lg (Negative) 07/22/17 03:03 Urine Nitrite Neg (Negative) 07/22/17 03:03 Urine Bilirubin Neg (Negative) 07/22/17 03:03 Urine Urobilinogen < 2.0 mg/dL (<2.0) 07/22/17 03:03 Ur Leukocyte Esterase Lg (Negative) 07/22/17 03:03 Urine WBC (Auto) > 182.0 /HPF (0.0-6.0) H 07/22/17 03:03 Urine RBC (Auto) > 182.0 /HPF (0.0-6.0) 07/22/17 03:03 Urine Bacteria (Auto) 1+ /HPF (Negative) 07/22/17 03:03 Urine Mucus Few /HPF 07/22/17 03:03 Salicylates < 0.3 mg/dL (2.8-20.0) L 07/22/17 02:12 Urine Opiates Screen Presumptive negative 07/22/17 02:12 Urine Methadone Screen Presumptive negative 07/22/17 02:12 Acetaminophen < 15.0 ug/mL (10.0-30.0) 07/22/17 02:12 Ur Barbiturates Screen Presumptive negative 07/22/17 02:12 Ur Phencyclidine Scrn Presumptive negative 07/22/17 02:12 Ur Amphetamines Screen Presumptive negative 07/22/17 02:12 U Benzodiazepines Scrn Presumptive negative 07/22/17 02:12 Urine Cocaine Screen Presumptive negative 07/22/17 02:12 U Marijuana (THC) Screen Presumptive negative 07/22/17 02:12 Drugs of Abuse Note Disclamer 07/22/17 02:12 Plasma/Serum Alcohol < 0.01 gm% (0-0.07) 07/22/17 02:12 - Imaging and Cardiology Chest x-ray: report reviewed Imaging and Cardiology: R knee Xray reviewed Assessment and Plan Advance Directives: Yes VTE prophylaxis?: Chemical Plan of care discussed with patient/family: Yes - Patient Problems (1) Acute encephalopathy Current Visit: Yes Status: Acute Plan to address problem: Improved, continue IV abx, head CT if worsening of symptoms (2) Sepsis secondary to UTI Current Visit: Yes Status: Acute Plan to address problem: Urine cultures pending, IV abx (3) Diabetes mellitus Current Visit: Yes Status: Acute Plan to address problem: Accuchecks, ADA diet, resume home meds, SSI (4) Anemia Current Visit: Yes Status: Acute (5) Post op infection Current Visit: Yes Status: Acute Plan to address problem: Blood cultures pending, IV Zosyn (6) Septic shock Current Visit: Yes Status: Acute Plan to address problem: Blood cultures pending, continue IV Zosyn, IVF (7) Status post total knee replacement, left Current Visit: Yes Status: Acute
[2017-07-22 13:05] LABS: Amphetamine Screen,Urine PRESUMPTIVE NEGATIVE; Benzodiazepines Screen,Urine PRESUMPTIVE NEGATIVE; Cannabinoid Screen,Urine PRESUMPTIVE NEGATIVE; Cocaine Screen,Urine PRESUMPTIVE NEGATIVE; Methadone Screen,Urine PRESUMPTIVE NEGATIVE; Opiate Screen,Urine PRESUMPTIVE NEGATIVE
[2017-07-22] MEDS ORDERED: LOVENOX SUB-Q SCH (14:00)
[2017-07-22 20:20] VITALS: BP 154/89
[2017-07-23] MEDS ORDERED: GLUCOPHAGE PO SCH (08:00)
[2017-07-29] MEDS ORDERED: ALBIGLUTIDE 50 MG SQ SCH (10:00)
== END 2017-07-22 21:09 | disposition admitted as inpatient to this hospital (09) ==
LOC: ED 01:54 → CC1 12:48 → UNDOADMIN 12:48 → ED 21:09
DX: T81.12XA Postprocedural septic shock, initial encounter (principal); N39.0 Urinary tract infection, site not specified; N28.9 Disorder of kidney and ureter, unspecified; E83.42 Hypomagnesemia; Z96.652 Presence of left artificial knee joint; E11.9 Type 2 diabetes mellitus without complications; E78.00 Pure hypercholesterolemia, unspecified
CPT/HCPCS: 36415; 36556; 70450; 71010; 73560; 80053; 80307; 81001; 82140; 82550; 82553; 82805; 82962; 83735; 84443; 84484; 85007; 85025; 85379; 85610; 85652; 86140; 87040; 87076; 87086; 87186; 93005; 93010; 96361; 96365; 96366; 96367; 96368; 96372; 99291; G0480; J2543; J3370; J3475; J7030; J7040; 80320

== ENCOUNTER 2018-05-05 14:36 | Outpatient (CLI) | payer MEDICARE, OTHER ==
--- NOTE | 2018-05-05 15:43 | XRay Report ---
XRAY CHEST TWO VIEWS: 05/05/18 14:36:00 CLINICAL: Cough. COMPARISON: 07/22/17 FINDINGS: Normal heart and pulmonary vasculature. The lungs are normally expanded and clear. A right PICC line has been removed since the previous exam. No tubes or lines.Degenerative change in the thoracic spine with anterior and lateral osteophytes. IMPRESSION: No acute cardiopulmonary process.
== END 2018-05-05 14:37 | disposition home or self-care (01) ==
LOC: SPVIMAG 14:36
DX: R05 Cough (principal); E11.9 Type 2 diabetes mellitus without complications
CPT/HCPCS: 71046

== ENCOUNTER 2019-09-26 12:14 | Outpatient (CLI) | payer MEDICARE, OTHER ==
--- NOTE | 2019-09-26 13:09 | XRay Report ---
RIGHT HAND 4 VIEWS INDICATION: RT HAND/RT INDEX FINGER PAIN. COMPARISON: No relevant prior imaging study available. FINDINGS: There is no acute skeletal abnormality. No radiographic evidence of inflammatory arthropathy. No foca l soft tissue swelling or foreign bodies. IMPRESSION: 1. No acute findings. Signer Name: Marcello Gorman MD Signed: 09/26/2019 1:04 PM Workstation Name: [id number]
== END 2019-09-26 12:15 | disposition home or self-care (01) ==
LOC: SPVIMAG 12:14
PROVIDERS: ATTEND Urology
DX: M79.641 Pain in right hand (principal)

== ENCOUNTER 2022-05-05 07:40 | Outpatient (CLI) | payer OTHER ==
--- NOTE | 2022-05-05 10:08 | Cat Scan Report ---
CT CHEST WITHOUT CONTRAST INDICATION / CLINICAL INFORMATION: R91.8 MASS,LUNG. TECHNIQUE: Axial CT images were obtained through the chest without contrast. [facility] CT scans at [facility] are performed using CT dose reduction for ALARA by means of automated exposure control. COMPARISON: Radiographs 04/27/2018 FINDINGS: HEART: No significant abnormality. CORONARY ARTERY CALCIFICATION: Absent -- None. THORACIC AORTA: Mild atherosclerotic calcification without acute abnormality. MEDIASTINUM / PHILLIP: No significant abnormality. PLEURA: No pleural effusion. No pneumothorax. LUNGS: There is a 5 mm triangular density along the lateral aspect of the right middle lobe (series 2 image 60), favored represent an intrapulmonary lymph node.. ADDITIONAL FINDINGS: Bilateral gynecomastia. UPPER ABDOMEN: 6 mm left adrenal nodule. Partially visualized right renal cyst. SKELETAL SYSTEM: No significant abnormality. IMPRESSION: 1. No lung mass, as questioned. 2. Single incidental pulmonary nodule(s) in the right middle lobe measuring 5 mm with solid character istics. Recommendation according to Fleischner Society 2017 Guidelines: Low Risk Patient: No routine follow-up; High Risk Patient: Optional CT at 12 months. 3. 6 mm left pulmonary nodule, which does not require dedicated follow-up imaging at this time. INCIDENTAL ADRENAL LESION The ACR Incidental Findings Committee Adrenal Subcommittee for management of incidental adrenal recommends the following for unenhanced CT, or washout protocol CT, or MRI with in- and opposed-phase sequences or equivalent protocols examinations for adrenal masses : 1) If an adrenal mass has diagnostic features of a benign lesion such as a Myelolipoma (presence of macroscopic fat) or Cyst (simple cyst-appearing without enhancement), no additional workup or follow- up imaging is needed. 1.5) If an adrenal lesion is 1 cm, it is likely benign requiring no additional imaging. 2) If the lesion is 1 to 4 cm and has a density of [address] or signal loss compared with the splee n on [id number] images of a chemical-shift MRI (CS-MRI) examination, it is almost always diagnostic of a lipid-rich Adenoma. If there are no diagnostic benign imaging features but the adrenal mass has been stable for 1 year or longer, it is very likely benign requiring no additional imaging. (ACR, 2017) 3) Refer to the Management of Incidental Adrenal Masses: A White Paper of the ACR Incidental Findings Committee (2017) https://www.jacr.org/article/[email or web address])[email or web address]/pdf for further detailed joan silva Signer Name: Mart Ibarra MD Signed: 05/05/2022 10:04 AM Workstation Name: [email or web address]
== END 2022-05-05 07:41 | disposition home or self-care (01) ==
LOC: CT 07:40
DX: R91.1 Solitary pulmonary nodule (principal); N28.1 Cyst of kidney, acquired; N62 Hypertrophy of breast; I70.0 Atherosclerosis of aorta
CPT/HCPCS: 71250